=== PATIENT | male | born 1955 | race Caucasian/White ===

== ENCOUNTER 2016-09-20 03:25 | Emergency (ER) | payer OTHER ==
[~2016-09-20] VITALS: Ht 177.8 cm; Wt 79.4 kg
[~2016-09-20 03:25] MED LIST: CELE200C PO; FENO48TA PO; ROPI3TAB PO; SERT50TA PO
[2016-09-20] MEDS ORDERED: ONDANSETRON 4 MG/2 ML VIAL IV ONE ×2 (03:45→05:00)
[2016-09-20] MEDS ORDERED: IV NORMAL SALINE 1000 ML BAG IV ONE ×2 (03:45→05:30)
[2016-09-20] MEDS ORDERED: HYDROMORPHONE 1 MG/1 ML DISP.SYRIN IV ONE ×2 (03:45→05:00)
[2016-09-20 03:50] LABS: EOSINOPHILS # (AUTO) 0.2 K/uL (0.0-0.7); EOSINOPHILS % (AUTO) 1.8 % (0.0-7.0); LYMPHOCYTES # (AUTO) 2.6 K/UL (0.8-4.8)
[2016-09-20] MEDS ORDERED: ONDANSETRON 4 MG/2 ML VIAL ONE ×2 (03:50→05:03)
[2016-09-20] MEDS ORDERED: HYDROMORPHONE 1 MG/1 ML DISP.SYRIN ONE ×2 (03:50→05:03)
--- NOTE | 2016-09-20 03:51 | NUR ---
Pt to room, changed into gown and placed on monitor. Pt SB. Pt c/o severe sharp general abd pain. Denies n/v/d and constipation. Pt seen by MD. IV established. Labs drawn and sent. EKG obtained and given to MD. Pt medicated for pain, will monitor for effects of medication. Fluid bolus infusing freely to gravity. Pt resting in position of comfort for self.
[2016-09-20 03:52] LABS: BASOPHILS # (AUTO) 0.1 K/uL (0.0-8.0); BASOPHILS % (AUTO) 0.7 % (0.0-2.0); HEMATOCRIT 54.9 % (40-50); HEMOGLOBIN 18.2 G/DL (14.0-18.0); LYMPHOCYTES % (AUTO) 20.1 % (20.5-51.5); MEAN CORPUSCULAR HEMOGLOBIN 30.6 UUG (27.0-31.0); MEAN CORPUSCULAR HGB CONC 33 g/dL (32.0-37.0); MONOCYTES # (AUTO) 0.5 K/UL (0.1-1.30); MONOCYTES % (AUTO) 3.8 % (0.0-11.0); NEUTROPHILS # (AUTO) 9.8 K/UL (1.8-8.9); NEUTROPHILS % (AUTO) 73.6 % (38.5-71.5); PLATELET COUNT (AUTO) 308 K/UL (150-450); RED BLOOD CELL COUNT(AUTO) 5.97 MIL/UL (4.7-6.1); WHITE BLOOD COUNT (AUTO) 13.1 K/UL (4.0-11.2)
[2016-09-20 03:57] LABS: BILIRUBIN,DIRECT 0.1 mg/dL (0.0-0.2); BILIRUBIN,TOTAL 0.4 mg/dL (0.2-1.0); CREATININE 1.1 mg/dL (0.6-1.3); POTASSIUM 4.1 mmol/L (3.5-5.1); TOTAL PROTEIN, SERUM 7.7 g/dL (6.4-8.2)
--- NOTE | 2016-09-20 04:31 | NUR ---
Pt to and from CT via gurney. Pt resting in position of comfort for self. Pt sts pain is improving. Pt no longer restless, no longer yelling out or moaning in pain. Fluid bolus cont infusing freely gravity.
--- NOTE | 2016-09-20 05:00 | NUR ---
Pt c/o pain increasing. MD notified and pt medicated, will monitor for effects of medication. Fluid bolus completed. Pt resting in position of comfort for self.
[2016-09-20 05:05] LABS: *BILIRUBIN,URIN NEGATIVE (NEGATIVE); *BLOOD, URINE Trace-intact (NEGATIVE); *CLARITY,URINE CLEAR (CLEAR); *COLOR,URINE LIGHT YELLOW (YELLOW); *KETONES,URINE NEGATIVE (NEGATIVE); *PROTEIN,URINE NEGATIVE (NEGATIVE); *UROBILINOGEN,URINE 0.2 E.U./dl (NORMAL); LEUKOCYTE ESTERASE ,URINE NEGATIVE (NEGATIVE); NITRITE, URINE NEGATIVE (NEGATIVE); UGLUCOSE NEGATIVE (NEGATIVE)
[2016-09-20 05:09] LABS: BACTERIA,URINE FEW /HPF (NONE SEEN); SQUAMOUS EPITHELIAL CELL,UR FEW /HPF (NONE SEEN); WBC,URINE 0-3 /HPF (0-3)
[2016-09-20] MEDS ORDERED: METOCLOPRAMIDE HCL 10 MG/2 ML VIAL IV ONE (05:45)
[2016-09-20] MEDS ORDERED: diphenhydrAMINE 50 MG/1 ML VIAL IV ONE (05:45)
--- NOTE | 2016-09-20 06:00 | NUR ---
Pt c/o cont nausea, MD notified and pt medicated, will monitor for effects of medication. 2nd fluid bolus infusing freely to gravity.
[2016-09-20] MEDS ORDERED: METOCLOPRAMIDE HCL 10 MG/2 ML VIAL ONE (06:01)
[2016-09-20] MEDS ORDERED: diphenhydrAMINE 50 MG/1 ML VIAL ONE (06:01)
[2016-09-20] MEDS ORDERED: PANTOPRAZOLE SODIUM 40 MG VIAL IV ONE (06:45)
--- NOTE | 2016-09-20 06:50 | NUR ---
Pt to CT via [facility].
[2016-09-20] MEDS ORDERED: IOHEXOL 300MG/ML 100 ML INFUS..BTL ONE (06:53)
[2016-09-20] MEDS ORDERED: IV NORMAL SALINE 250 ML IV ONE (06:53)
--- NOTE | 2016-09-20 07:33 | NUR ---
Pt returned from CT via gurney. Pt no complaints at this time. Sts he is feeling better. Report given to EVAN Flores. I relinquish care of pt at this time.
--- NOTE | 2016-09-20 07:49 | NUR ---
Pt resting in bed, no c/o pain at this time.Kamran BP on bue completed and RUE is 136/81 and LUE is 135/83. aware.
[2016-09-20] MEDS ORDERED: PANTOPRAZOLE SODIUM 40 MG VIAL ONE (07:52)
--- NOTE | 2016-09-20 09:24 | NUR ---
Patient is resting comfortably in bed with eyes closed, NAD noted. at the bedside.
[2016-09-20 10:54] VITALS: BP 135/83
--- NOTE | 2016-09-20 10:54 | NUR ---
IV removed. Catheter intact and site benign. Pressure and 4x4 gauze applied to site. No bleeding noted.
--- NOTE | 2016-09-20 10:55 | NUR ---
Patient discharged to home in stable conditon. Written and verbal after care instructions given. Patient verbalizes understanding of instructions.
== END 2016-09-20 10:56 | disposition home or self-care (01) ==
LOC: ER 03:27
DX: I71.4 Abdominal aortic aneurysm, without rupture (principal); K21.9 Gastro-esophageal reflux disease without esophagitis; F32.9 Major depressive disorder, single episode, unspecified; E78.5 Hyperlipidemia, unspecified; F17.200 Nicotine dependence, unspecified, uncomplicated; Z90.49 Acquired absence of other specified parts of digestive tract
CPT/HCPCS: 36415; 70030-TC; 71010; 71260; 72193; 74160; 83690; 85025; 93005; A4663; C9113; J1170; J1200; J2405; J2765; J7030; J7050; Q9967

== ENCOUNTER 2017-12-14 14:51 | Emergency (ER) | payer OTHER ==
[~2017-12-14] VITALS: Ht 177.8 cm; Wt 81.6 kg
[2017-12-14] MEDS ORDERED: EZETIMIBE 10 MG TABLET (15:16)
[2017-12-14] MEDS ORDERED: GABAPENTIN 300 MG CAPS (15:16)
[2017-12-14] MEDS ORDERED: ONDANSETRON 4 MG/2 ML VIAL ONE (15:24)
[2017-12-14] MEDS ORDERED: FAMOTIDINE. 20 MG/2 ML VIAL IV ONE ×2 (15:24→15:30)
[2017-12-14] MEDS ORDERED: HYDROMORPHONE 1 MG/1 ML DISP.SYRIN ONE (15:24)
[2017-12-14] MEDS ORDERED: HYDROMORPHONE 1 MG/1 ML DISP.SYRIN IV ONE (15:30)
[2017-12-14] MEDS ORDERED: ONDANSETRON 4 MG/2 ML VIAL IV ONE (15:30)
[2017-12-14] MEDS ORDERED: IV NORMAL SALINE 1000 ML BAG IV ONE (15:30)
[2017-12-14 15:31] LABS: BASOPHILS # (AUTO) 0.1 K/uL (0.0-8.0); BASOPHILS % (AUTO) 0.9 % (0.0-2.0); EOSINOPHILS % (AUTO) 0.2 % (0.0-7.0); HEMATOCRIT 51.1 % (36.7-47.1); HEMOGLOBIN 17.7 g/dL (12.5-16.3); LYMPHOCYTES # (AUTO) 1.9 K/uL (20.0-40.0); LYMPHOCYTES % (AUTO) 16.3 % (20.5-51.5); MEAN CORPUSCULAR HEMOGLOBIN 32.8 uug (23.8-33.4); MEAN CORPUSCULAR HGB CONC 35 g/dL (32.5-36.3); MEAN CORPUSCULAR VOLUME 94.9 fL (73.0-96.2); MONOCYTES # (AUTO) 0.4 K/uL (2.0-10.0); MONOCYTES % (AUTO) 3.1 % (0.0-11.0); NEUTROPHILS # (AUTO) 9.1 K/uL (1.8-8.9); NEUTROPHILS % (AUTO) 79.5 % (38.5-71.5); PLATELET COUNT (AUTO) 263 K/uL (152-348); RED BLOOD CELL COUNT(AUTO) 5.39 MIL/uL (4.06-5.63); WHITE BLOOD COUNT (AUTO) 11.4 K/uL (3.6-10.2)
[2017-12-14 15:37] LABS: POTASSIUM 4.5 mmol/L (3.5-5.1)
[2017-12-14 15:42] LABS: BILIRUBIN,DIRECT 0.1 mg/dL (0.0-0.2); BILIRUBIN,TOTAL 0.7 mg/dL (0.2-1.0); TOTAL PROTEIN, SERUM 8.2 g/dL (6.4-8.2)
[2017-12-14] MEDS ORDERED: SWABABLE VALVE TRANSFER SET EA MC ONE (15:56)
[2017-12-14] MEDS ORDERED: NORMAL SALINE FLUSH 10 ML DISP.SYRIN ONE (15:56)
[2017-12-14] MEDS ORDERED: IV NORMAL SALINE 250 ML IV ONE (15:57)
[2017-12-14] MEDS ORDERED: IOHEXOL 300MG/ML 100 ML INFUS..BTL ONE (15:57)
--- NOTE | 2017-12-14 17:01 | NUR ---
Patient discharged to home in stable conditon. Written and verbal after care instructions given. Patient verbalizes understanding of instructions.PT WALKS IN STEADY GAIT, PT SAYS FEELS BETTER. PT WITH . PT NOT DRIVING
[2017-12-14 17:03] VITALS: BP 167/89
== END 2017-12-14 17:04 | disposition home or self-care (01) ==
LOC: ER 14:51
DX: R10.13 Epigastric pain (principal); K21.9 Gastro-esophageal reflux disease without esophagitis; E78.5 Hyperlipidemia, unspecified; F17.200 Nicotine dependence, unspecified, uncomplicated; Z90.49 Acquired absence of other specified parts of digestive tract
CPT/HCPCS: 36415; 74177; 80048; 80061; 80076; 83690; 84484; 85025; 93005; 96361; 96374; 96375; 99285; A4663; J1170; J2405; J3490 ×2; J7030 ×2; J7050; Q9967; 70030-TC